=== PATIENT | male | born 1995 | race Hispanic/Latino ===

== ENCOUNTER 2021-07-23 15:11 | Emergency (ER) | payer SELFPAY ==
[~2021-07-23] VITALS: Ht 165.1 cm; Wt 74.4 kg
[~2021-07-23 15:11] MED LIST: AMOXICILLIN500 MG PO; BENADRYL 50MG C50 MG PO; ELIMITE60 GM TOP; ULTRAM50 M1 PO
[2021-07-23] MEDS ORDERED: BACTRIM DS1 TAB PO ×3 (15:39→16:03)
[2021-07-23 16:08] VITALS: BP 140/90
== END 2021-07-23 16:15 | disposition home or self-care (01) | DRG 603 ==
LOC: ED 15:11
PROC: 0H9DXZZ Drainage of Right Lower Arm Skin, External Approach (ICD-10-PCS; principal; 2021-07-23)
DX: L02.413 Cutaneous abscess of right upper limb (principal); F17.200 Nicotine dependence, unspecified, uncomplicated

== ENCOUNTER 2021-07-25 11:14 | Emergency (ER) | payer SELFPAY ==
[~2021-07-25] VITALS: Ht 165.1 cm; Wt 74.0 kg
[~2021-07-25 11:14] MED LIST changes: +BACTRIM DS1 TAB PO
[2021-07-25 11:24] VITALS: BP 136/76
[2021-07-25 11:30] VITALS: BP 119/86
[2021-07-25 12:00] VITALS: BP 113/80
== END 2021-07-25 12:11 | disposition home or self-care (01) | DRG 951 ==
LOC: ED 11:14
DX: Z48.01 Encounter for change or removal of surgical wound dressing (principal); F17.200 Nicotine dependence, unspecified, uncomplicated

== ENCOUNTER 2021-07-30 13:06 | Emergency (ER) | payer SELFPAY ==
[~2021-07-30] VITALS: Ht 165.1 cm; Wt 70.0 kg
[2021-07-30 14:01] VITALS: BP 138/72
== END 2021-07-30 14:15 | disposition home or self-care (01) | DRG 951 ==
LOC: ED 13:06
DX: Z48.01 Encounter for change or removal of surgical wound dressing (principal); F17.200 Nicotine dependence, unspecified, uncomplicated

== ENCOUNTER 2022-07-23 00:59 | Emergency (ER) | payer SELFPAY ==
[~2022-07-23] VITALS: Ht 165.1 cm; Wt 68.0 kg
[2022-07-23] VITALS (10 sets, daily range): BP systolic 95–121; BP diastolic 52–70
[2022-07-23 01:29] LABS: BASO% 0.2 % (0-3); EOS% 0.3 % (0-8); HEMOGLOBIN 13.7 g/dl (14.0-18.0); IMMATURE GRANULOCYTES 0.4 % (0.0-5.0); MEAN CORPUSCULAR HGB 29.7 pG CALC (26.0-32.0); MEAN CORPUSCULAR HGB CONC 33.4 g/dL CAL (32.0-36.0); MONO% 6.6 % (2-13); NEUT# 9.02 thou/uL (1.82-7.42); NEUT% 76.5 % (42-76); RED BLOOD COUNT 4.62 mill/uL (4.70-6.10)
[2022-07-23 01:33] LABS: MEAN CELL VOLUME 88.7 fL CALC (80.0-100.0)
[2022-07-23 01:45] LABS: ALBUMIN 4.8 g/dL (3.2-5.0); ALKALINE PHOSPHATASE 93 u/l (38-126); BILIRUBIN, TOTAL 0.1 mg/dL (0.2-1.3); BUN 5 mg/dL (9-20); BUN/CREATININE RATIO 7 (12-20 (CALC)); CHLORIDE 113 mmol/l (95-108); CREATININE 0.8 mg/dL (0.7-1.3); ETHYL ALCOHOL 199 mg/dl (0-30); GFR FOR AFR.AMER. > 60 ML/MIN (>=60 (CALC)); GFR OTHER RACES > 60 ML/MIN (>=60 (CALC)); POTASSIUM 3.6 mmol/l (3.5-5.1); SGOT/AST 37 u/l (17-59); SODIUM 143 mmol/l (137-146)
[2022-07-23 01:47] LABS: ANION GAP 16 (6-22 (CALC)); CARBON DIOXIDE 18 mmol/l (22-30)
[2022-07-23] MEDS ORDERED: AMOX/K CLAV875 M1 PO (03:18)
[2022-07-23 05:57] LABS: URINE BILIRUBIN - DIPSTICK NEGATIVE (NEGATIVE); URINE BLOOD DIPSTICK TRACE-INTACT (NEGATIVE); URINE COLOR YELLOW; URINE GLUCOSE - DIPSTICK NEGATIVE (NEGATIVE); URINE KETONE NEGATIVE (NEGATIVE); URINE LEUK ESTERASE NEGATIVE (NEGATIVE); URINE PH 5.5 (4.5-8.0); URINE PROTEIN - DIPSTICK NEGATIVE (NEG-TRACE); URINE SPECIFIC GRAVITY 1.025; URINE UROBILINOGEN - DIPSTICK 0.2 E.U./dL (0.2)
[2022-07-23 05:58] LABS: URINE NITRITE - DIPSTICK NEGATIVE (Negative)
== END 2022-07-23 08:25 | disposition home or self-care (01) | DRG 605 ==
LOC: ED 00:59
PROVIDERS: Family Medicine
PROC: 0HQ6XZZ Repair Back Skin, External Approach (ICD-10-PCS; principal; 2022-07-23)
PROC: 0HQJXZZ Repair Left Upper Leg Skin, External Approach (ICD-10-PCS; 2022-07-23)
PROC: 0HQEXZZ Repair Left Lower Arm Skin, External Approach (ICD-10-PCS; 2022-07-23)
PROC: 0HQDXZZ Repair Right Lower Arm Skin, External Approach (ICD-10-PCS; 2022-07-23)
DX: S31.050A Open bite of lower back and pelvis without penetration into retroperitoneum, initial encounter (principal); S51.851A Open bite of right forearm, initial encounter; S51.852A Open bite of left forearm, initial encounter; S71.152A Open bite, left thigh, initial encounter; F14.10 Cocaine abuse, uncomplicated; F10.129 Alcohol abuse with intoxication, unspecified; Y90.6 Blood alcohol level of 120-199 mg/100 ml; F12.10 Cannabis abuse, uncomplicated; F17.200 Nicotine dependence, unspecified, uncomplicated; Y92.007 Garden or yard of unspecified non-institutional (private) residence as the place of occurrence of the external cause; W54.0XXA Bitten by dog, initial encounter